=== PATIENT | female | born 1980 ===

== ENCOUNTER 2020-05-04 14:48 | Inpatient (IN) | payer MEDICAID, OTHER ==
[~2020-05-04] VITALS: Ht 167.7 cm; Wt 128.9 kg
[2020-05-04] MEDS ORDERED: ONDANSETRON 4 MG/2 ML (SDV) Z0FRAN IVP ONE (15:00)
[2020-05-04] MEDS ORDERED: KETOROLAC 30 MG/ML VIAL IVP ONE (15:00)
[2020-05-04] MEDS ORDERED: NS IV 1000 ML 1,000 ML IV SCH ×2 (15:00→16:00)
--- NOTE | 2020-05-04 15:04 | ED Abdominal Pain ---
General Stated Complaint: FEVER/LOWER ABD PAIN/NEG COVID TEST Source of Information: Patient Exam Limitations: No Limitations History of Present Illness Date Seen by Provider: May 04, 2020 Time Seen by Provider: 14:59 Initial Comments To ER from [facility] walk-in clinic where she presented with lower abdominal pain. She was seen at [facility] yesterday. States that she had a CT scan done and was told she had a cyst on her ovary. Today she has worsening pain and fevers. Symptoms began yesterday morning. She has also developed some nausea and diarrhea. Denies any dysuria. 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 She had a partial colectomy and colostomy with subsequent colostomy reversal as well as appendectomy. The surgeries were done in [place] greater than 5 years ago. She moved here from [place] in August or September of the past year. She has not established with a primary care provider yet. She takes no medications but used to take Lexapro for depression, Topamax for migraines and nortriptyline for [place] associated with the migraines. Timing/Duration: 1-2 Days Severity/Quality: Moderate Location: Suprapubic Radiation: No Radiation Activities at Onset: None Associated Symptoms: Fever/Chills, Nausea/Vomiting Allergies and Home Medications Allergies Coded Allergies: penicillin V (Verified Allergy, Unknown, 05/04/20) Patient Home Medication List Home Medication List Reviewed: Yes Review of Systems Review of Systems Constitutional: see HPI, chills, fever EENTM: No Symptoms Reported Respiratory: No Symptoms Reported, See HPI; Denies Cough Cardiovascular: No Symptoms Reported Gastrointestinal: See HPI, Abdominal Pain, Diarrhea, Nausea Genitourinary: No Symptoms Reported Musculoskeletal: no symptoms reported Skin: no symptoms reported Psychiatric/Neurological: No Symptoms Reported Endocrine: No Symptoms Reported Hematologic/Lymphatic: No Symptoms Reported Physical Exam Vital Signs Vital Signs - First Documented 05/04/20 14:53 Temp 37.7 Pulse 136 Resp 22 B/P (MAP) 145/69 (94) Pulse Ox 98 O2 Delivery Room Air Capillary Refill : Height/Weight/BMI Height: '" Weight: lbs. oz. kg; BMI Method: General Appearance: WD/WN, obese, other (alert, in pain though still very plea elias. Lower abdomen Tender to palpation. Tachycardic at 120s. ) HEENT: PERRL/EOMI, normal ENT inspection Respiratory: normal breath sounds, no respiratory distress, no accessory muscle use Cardiovascular: no murmur, tachycardia Gastrointestinal: normal bowel sounds, soft, tenderness Extremities: normal range of motion, non-tender Neurologic/Psychiatric: alert, normal mood/affect, oriented x 3 Skin: normal color, warm/dry Focused Exam Lactate Level 05/04/20 14:59: Lactic Acid Level 1.85 Lactic Acid Level Laboratory Tests Test 05/04/20 14:59 Lactic Acid Level 1.85 MMOL/L (0.50-2.00) Progress/Results/Core Measures Results/Orders Lab Results Laboratory Tests Test 05/04/20 14:59 Range/Units White Blood Count 19.2 H 4.3-11.0 10^3/uL Red Blood Count 4.54 3.80-5.11 10^6/uL Hemoglobin 13.4 11.5-16.0 g/dL Hematocrit 40 35-52 % Mean Corpuscular Volume 89 80-99 fL Mean Corpuscular Hemoglobin 30 25-34 pg Mean Corpuscular Hemoglobin Concent 33 32-36 g/dL Red Cell Distribution Width 13.0 10.0-14.5 % Platelet Count 330 130-400 10^3/uL Mean Platelet Volume 9.3 9.0-12.2 fL Immature Granulocyte % (Auto) 1 % Neutrophils (%) (Auto) 91 H 42-75 % Lymphocytes (%) (Auto) 4 L 12-44 % Monocytes (%) (Auto) 4 0-12 % Eosinophils (%) (Auto) 0 0-10 % Basophils (%) (Auto) 0 0-10 % Neutrophils # (Auto) 17.4 H 1.8-7.8 10^3/uL Lymphocytes # (Auto) 0.8 L 1.0-4.0 10^3/uL Monocytes # (Auto) 0.8 0.0-1.0 10^3/uL Eosinophils # (Auto) 0.0 0.0-0.3 10^3/uL Basophils # (Auto) 0.0 0.0-0.1 10^3/uL Immature Granulocyte # (Auto) 0.1 0.0-0.1 10^3/uL Neutrophils % (Manual) 82 % Lymphocytes % (Manual) 1 % Monocytes % (Manual) 6 % Band Neutrophils 11 % Toxic Granulation 1+ Blood Morphology Comment NORMAL Urine Color SHIV H Urine Clarity SL CLOUDY Urine pH 5.5 5-9 Urine Specific [place] >=1.030 1.016-1.022 Urine Protein 3+ H NEGATIVE Urine Glucose (UA) NEGATIVE NEGATIVE Urine Ketones TRACE H NEGATIVE Urine Nitrite POSITIVE H NEGATIVE Urine Bilirubin 2+ H NEGATIVE Urine Urobilinogen 4.0 < = 1.0 MG/DL Urine Leukocyte Esterase TRACE H NEGATIVE Urine RBC (Auto) 3+ H NEGATIVE Urine RBC 25-50 H /HPF Urine WBC 5-10 H /HPF Urine Crystals NONE /LPF Urine Bacteria LARGE H /HPF Urine Casts NONE /LPF Urine Mucus SMALL H /LPF Urine Culture Indicated YES Sodium Level 135 135-145 MMOL/L Potassium Level 3.2 L 3.6-5.0 MMOL/L Chloride Level 105 98-107 MMOL/L Carbon Dioxide Level 21 21-32 MMOL/L Anion Gap 9 5-14 MMOL/L Blood Urea Nitrogen 8 7-18 MG/DL Creatinine 0.79 0.60-1.30 MG/DL Estimat Glomerular Filtration Rate > 60 BUN/Creatinine Ratio 10 Glucose Level 145 H 70-105 MG/DL Lactic Acid Level 1.85 0.50-2.00 MMOL/L Calcium Level 8.7 8.5-10.1 MG/DL Corrected Calcium 9.0 8.5-10.1 MG/DL Total Bilirubin 1.3 H 0.1-1.0 MG/DL Aspartate Amino Transf (AST/SGOT) 18 5-34 U/L Alanine Aminotransferase (ALT/SGPT) 40 0-55 U/L Alkaline Phosphatase 68 40-136 U/L Total Protein 7.5 6.4-8.2 GM/DL Albumin 3.6 3.2-4.5 GM/DL Lipase 10 8-78 U/L Serum Test, Qualitative NEGATIVE NEGATIVE My Orders Orders - ANDRIA ALAS APRN Cbc With Automated Diff (05/04/20 14:57) Hcg,Qualitative Serum (05/04/20 14:57) Comprehensive Metabolic Panel (05/04/20 14:57) Lipase (05/04/20 14:57) Ua Culture If Indicated (05/04/20 14:57) Blood Culture (05/04/20 14:57) Lactic Acid Analyzer (05/04/20 14:57) Ct Abdomen/Pelvis W (05/04/20 14:57) Ns Iv 1000 Ml (Sodium Chloride 0.9%) (05/04/20 15:00) Ketorolac Injection (Toradol Injection) (05/04/20 15:00) Ondansetron Injection (Zofran Injectio (05/04/20 15:00) Urine Culture (05/04/20 14:59) Iohexol Injection (Omnipaque 350 Mg/Ml 1 (05/04/20 15:45) Received Contrast (Hold Metformin- Contr (05/04/20 15:45) Sodium Chloride Flush (Catheter Flush Sy (05/04/20 15:45) Ns (Ivpb) (Sodium Chloride 0.9% Ivpb Bag (05/04/20 15:45) Manual Differential (05/04/20 14:59) Ns Iv 1000 Ml (Sodium Chloride 0.9%) (05/04/20 16:00) Ceftriaxone For Iv Use (Rocephin For I (05/04/20 16:00) Metronidazole 500mg/100ml Ivpb (Flagyl 5 (05/04/20 16:00) Fentanyl Injection (Sublimaze Injection (05/04/20 16:00) Medications Given in ED Current Medications Medications Dose Ordered Sig/Adina Route Start Time Stop Time Status Last Admin Dose Admin Ceftriaxone Sodium 1000 mg/ Sterile Water 10 ml @ 200 mls/hr ONCE ONCE IV 05/04/20 16:00 05/04/20 16:02 DC 05/04/20 16:06 200 MLS/HR Fentanyl Citrate 50 mcg ONCE ONCE IVP 05/04/20 16:00 05/04/20 16:01 DC 05/04/20 16:07 50 MCG Iohexol 100 ml ONCE ONCE IV 05/04/20 15:45 05/04/20 15:47 DC 05/04/20 15:43 100 ML Ketorolac Tromethamine 30 mg ONCE ONCE IVP 05/04/20 15:00 05/04/20 15:01 DC 05/04/20 15:08 30 MG Metronidazole 100 ml @ 100 mls/hr ONCE ONCE IV 05/04/20 16:00 05/04/20 16:59 05/04/20 16:06 100 MLS/HR Ondansetron HCl 4 mg ONCE ONCE IVP 05/04/20 15:00 05/04/20 15:01 DC 05/04/20 15:08 8 MG Sodium Chloride 10 ml NEEDED PRN IV 05/04/20 15:45 05/04/20 15:43 10 ML Sodium Chloride 100 ml ONCE ONCE IV 05/04/20 15:45 05/04/20 15:47 DC 05/04/20 15:43 80 ML Vital Signs/I&O 05/04/20 14:53 Temp 37.7 Pulse 136 Resp 22 B/P (MAP) 145/69 (94) Pulse Ox 98 O2 Delivery Room Air Departure Communication (Admissions) 1619-She has tachycardia, fever, leukocytosis plus a source of infection meeting sepsis criteria. She does not meet severe sepsis criteria as she does not have a lactate over 4, end organ damage, or her systolic pressure less than 90. In fact her blood pressure is in the 140s. She has had 1 L of IV fluids here and the second liter is infusing currently. She is received 1 g of IV Rocephin and 500 mg of IV Flagyl here as well as Toradol plus fentanyl and her pain is well controlled. She is afebrile at this time. I discussed the case with Dr. Velazco on-call for surgery will admit to him, consult Dr. Phillips from radiology for CT- guided drain placement tomorrow. I have updated the patient and her significant other on the diagnosis and plan of care. Both are in agreement with proceeding with the plan . Impression Primary Impression: Intra-abdominal abscess Additional Impression: Sepsis Disposition: ADMITTED INPATIENT Condition: Stable Admissions Decision to Admit Reason: Admit from ER (General) Decision to Admit/Date: May 04, 2020 Time/Decision to Admit Time: 16:18 Departure-Patient Inst. Referrals: NO,LOCAL PHYSICIAN (PCP/Family) Primary Care Physician ANDRIA AALS APRN May 04, 2020 15:04
[2020-05-04 15:11] LABS: BASOPHILS % (AUTO) 0 % (0-10); EOSINOPHILS % (AUTO) 0 % (0-10); HEMATOCRIT 40 % (35-52); HEMOGLOBIN 13.4 g/dL (11.5-16.0); LYMPHOCYTES # (AUTO) 0.8 10^3/uL (1.0-4.0); LYMPHOCYTES % (AUTO) 4 % (12-44); MEAN CORPUSCULAR HEMOGLOBIN 30 pg (25-34); MEAN CORPUSCULAR HGB CONC 33 g/dL (32-36); MEAN CORPUSCULAR VOLUME 89 fL (80-99); MEAN PLATELET VOLUME 9.3 fL (9.0-12.2); MONOCYTES # (AUTO) 0.8 10^3/uL (0.0-1.0); MONOCYTES % (AUTO) 4 % (0-12); NEUTROPHILS # (AUTO) 17.4 10^3/uL (1.8-7.8); NEUTROPHILS % (AUTO) 91 % (42-75); PLATELET COUNT 330 10^3/uL (130-400); WHITE BLOOD COUNT 19.2 10^3/uL (4.3-11.0)
[2020-05-04 15:14] LABS: BILIRUBIN,URINE 2+ (NEGATIVE); CLARITY,URINE SL CLOUDY; COLOR,URINE AMBER; GLUCOSE, URINE (UA) NEGATIVE (NEGATIVE); KETONES,URINE TRACE (NEGATIVE); LEUKOCYTE ESTERASE ,URINE TRACE (NEGATIVE); NITRITE,URINE POSITIVE (NEGATIVE); PH,URINE 5.5 (5-9); PROTEIN,URINE 3+ (NEGATIVE)
[2020-05-04 15:22] LABS: ALBUMIN 3.6 GM/DL (3.2-4.5); CHLORIDE 105 MMOL/L (98-107); POTASSIUM 3.2 MMOL/L (3.6-5.0); SODIUM 135 MMOL/L (135-145)
[2020-05-04 15:23] LABS: CALCIUM 8.7 MG/DL (8.5-10.1)
[2020-05-04 15:25] LABS: GLUCOSE 145 MG/DL (70-105); TOTAL PROTEIN 7.5 GM/DL (6.4-8.2)
[2020-05-04 15:26] LABS: BILIRUBIN,TOTAL 1.3 MG/DL (0.1-1.0); CARBON DIOXIDE 21 MMOL/L (21-32)
[2020-05-04 15:28] LABS: ALKALINE PHOSPHATASE 68 U/L (40-136); CREATININE SERUM 0.79 MG/DL (0.60-1.30); GFR ESTIMATED > 60; RBC,URINE 25-50 /HPF
[2020-05-04 15:29] LABS: BACTERIA,URINE LARGE /HPF; BUN/CREATININE RATIO 10
[2020-05-04 15:31] LABS: ALANINE AMINOTRANSFERASE 40 U/L (0-55)
[2020-05-04 15:32] LABS: LIPASE 10 U/L (8-78)
[2020-05-04 15:35] LABS: BAND NEUTROPHILS 11 %; LYMPHOCYTES % (MANUAL) 1 %; MONOCYTES % (MANUAL) 6 %; NEUTROPHILS % (MANUAL) 82 %
[2020-05-04 15:36] LABS: RBC MORPH NORMAL; TOXIC GRANULATION/VACUOLAZATIO 1+
[2020-05-04] MEDS ORDERED: HOLD METFORMIN - RECEIVED CONTRAST 20 ML VIAL IV SCH (15:45)
[2020-05-04] MEDS ORDERED: IOHEXOL 350 MG/ML 100 ML (OMNIPAQUE 350) VIAL IV ONE (15:45)
[2020-05-04] MEDS ORDERED: NS 100 ML (IVPB) BAG IV ONE (15:45)
[2020-05-04] MEDS ORDERED: CATHETER FLUSH 10 ML SYR IV PRN (15:45)
[2020-05-04] MEDS ORDERED: cefTRIAXone FOR IV USE 1,000 MG in WATER (STERILE) FOR INJECTION 10 ML IV ONE (16:00)
[2020-05-04] MEDS ORDERED: fentaNYL INJECTION 100 MCG/2 ML AMP IVP ONE (16:00)
[2020-05-04] MEDS ORDERED: metroNIDAZOLE 500MG/100ML IVPB 100 ML IV ONE (16:00)
--- NOTE | 2020-05-04 16:02 | Diagnostic Imaging Report ---
Procedure: CT abdomen and pelvis with contrast. Technique: Multiple contiguous axial images were obtained through the abdomen and pelvis after administration of intravenous contrast. Auto Exposure Controls were utilized during the CT exam to meet ALARA standards for radiation dose reduction. All CT scans use one or more of the following dose optimizing techniques: automated exposure control, MA and/or KvP adjustment based on patient size and exam type or iterative reconstruction. Indication: Suprapubic lower abdominal pain with fever. Comparison: None. Discussion: Lung bases are well-aerated. Normal heart size. No pleural or pericardial fluid. Fatty infiltration of the liver is noted. The gallbladder is mostly contracted and appears to be full of stones. The pancreas, stomach, spleen and adrenal glands are unremarkable. No renal stone, mass or hydronephrosis. The uterus is unremarkable. The urinary bladder is decompressed. There is a suture line within the proximal sigmoid colon which appears patent. Within the central abdomen there is a large complex fluid collection with thin enhancing shell measuring 24 x 10 x 9 cm. In the appropriate clinical setting this could represent an intra-abdominal abscess. The source of this abscess is not identified. There is no mural nodularity identified though a large cystic ovarian neoplasm is not entirely excluded, though felt to be much less likely. No adenopathy. The aorta is normal in caliber. No osseous abnormality identified. Impression: 1. There is a large rim-enhancing complex fluid collection within the central abdomen, most likely a large intraperitoneal abscess. Recommend clinical correlation. 2. Fatty infiltration of the liver. Dictated by: Dictated on workstation # [id number]
[2020-05-04] MEDS ORDERED: LACTATED RINGERS 1,000 ML IV ONE (17:11)
[2020-05-04 17:15] VITALS: BP 120/81
[2020-05-04 17:30] VITALS: BP_SYST 121; BP_SYST 136; BP_DIAS 78
[2020-05-04] MEDS: LACTATED RINGERS 1,000 ML IV SCH (17:43)
[2020-05-04 17:46] VITALS: BP 132/74
[2020-05-04] MEDS ORDERED: PANTOPRAZOLE 40 MG (PROTONIX) VIAL ONE (17:55)
[2020-05-04] MEDS ORDERED: PANTOPRAZOLE 40 MG (PROTONIX) VIAL IV ONE (18:00)
[2020-05-04] MEDS ORDERED: ONDANSETRON 4 MG/2 ML (SDV) Z0FRAN IVP PRN (19:30)
[2020-05-04] MEDS ORDERED: ACETAMINOPHEN 325 MG TABLET PO PRN (19:30)
[2020-05-04] MEDS ORDERED: PROMETHAZINE INJ 25 MG/ML (PHENERGAN) AMP IVP PRN (19:30)
[2020-05-04 20:55] VITALS: BP 133/98
[2020-05-04] MEDS: metroNIDAZOLE 500 MG/100 ML IVPB (PRE-MIX) IV SCH (21:07)
[2020-05-04] MEDS: fentaNYL INJECTION 100 MCG/2 ML AMP IVP PRN (21:07)
[2020-05-05] VITALS: BP 132/84
[2020-05-05] MEDS: LACTATED RINGERS 1,000 ML IV SCH ×3 (00:29→08:07)
[2020-05-05] MEDS: fentaNYL INJECTION 100 MCG/2 ML AMP IVP PRN ×3 (02:23→08:06)
[2020-05-05 02:56] LABS: BASOPHILS % (AUTO) 0 % (0-10); EOSINOPHILS % (AUTO) 0 % (0-10); HEMATOCRIT 33 % (35-52); HEMOGLOBIN 10.8 g/dL (11.5-16.0); LYMPHOCYTES # (AUTO) 0.8 10^3/uL (1.0-4.0); LYMPHOCYTES % (AUTO) 5 % (12-44); MEAN CORPUSCULAR HEMOGLOBIN 30 pg (25-34); MEAN CORPUSCULAR HGB CONC 33 g/dL (32-36); MEAN CORPUSCULAR VOLUME 90 fL (80-99); MEAN PLATELET VOLUME 9.6 fL (9.0-12.2); MONOCYTES # (AUTO) 0.9 10^3/uL (0.0-1.0); MONOCYTES % (AUTO) 6 % (0-12); NEUTROPHILS # (AUTO) 12.7 10^3/uL (1.8-7.8); NEUTROPHILS % (AUTO) 88 % (42-75); PLATELET COUNT 246 10^3/uL (130-400); WHITE BLOOD COUNT 14.4 10^3/uL (4.3-11.0)
[2020-05-05 03:09] LABS: ALBUMIN 2.9 GM/DL (3.2-4.5); CHLORIDE 108 MMOL/L (98-107); POTASSIUM 3.1 MMOL/L (3.6-5.0); SODIUM 136 MMOL/L (135-145)
[2020-05-05 03:11] LABS: CALCIUM 7.7 MG/DL (8.5-10.1)
[2020-05-05 03:12] LABS: GLUCOSE 108 MG/DL (70-105); TOTAL PROTEIN 5.8 GM/DL (6.4-8.2)
[2020-05-05 03:13] LABS: CARBON DIOXIDE 21 MMOL/L (21-32)
[2020-05-05 03:15] LABS: ALKALINE PHOSPHATASE 61 U/L (40-136); CREATININE SERUM 0.66 MG/DL (0.60-1.30); GFR ESTIMATED > 60
[2020-05-05 03:16] LABS: BUN/CREATININE RATIO 11
[2020-05-05 03:18] LABS: ALANINE AMINOTRANSFERASE 28 U/L (0-55)
[2020-05-05 04:00] VITALS: BP 135/84
[2020-05-05] MEDS: metroNIDAZOLE 500 MG/100 ML IVPB (PRE-MIX) IV SCH ×2 (05:25→15:06)
[2020-05-05 08:00] VITALS: BP 132/83
[2020-05-05] MEDS ORDERED: PANTOPRAZOLE 40 MG (PROTONIX) VIAL IV SCH (09:00)
[2020-05-05] MEDS ORDERED: FLUT9.9S NS (09:57)
[2020-05-05] MEDS ORDERED: IBUP-2473 PO (09:57)
[2020-05-05] MEDS ORDERED: FAMO20TA3 PO (09:57)
[2020-05-05] MEDS ORDERED: HYDROcodone/APAP 5 MG/325 MG (LORTAB) TAB ONE (11:56)
[2020-05-05 12:00] VITALS: BP 131/94
[2020-05-05] MEDS: HYDROcodone/APAP 5 MG/325 MG (LORTAB) TAB PO PRN ×2 (12:02→17:35)
--- NOTE | 2020-05-05 12:19 | History & Physical-Surgical ---
History of Present Illness History of Present Illness Reason for visit/HPI Surgery asked to admit regarding abdominal pain and fluid in aabdomen. HPI per ED: To ER from [facility] walk-in clinic where she presented with lower abdominal pain. She was seen at [facility] yesterday. States that she had a CT scan done and was told she had a cyst on her ovary. Today she has worsening pain and fevers. Symptoms began yesterday morning. She has also developed some nausea and diarrhea. Denies any dysuria. 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 She had a partial colectomy and colostomy with subsequent colostomy reversal as well as appendectomy. The surgeries were done in [place] greater than 5 years ago. She moved here from [place] in August or September of the past year. She has not established with a primary care provider yet. She takes no medications but used to take Lexapro for depression, Topamax for migraines and nortriptyline for [place] associated with the migraines. Timing/Duration: 1-2 Days Severity/Quality: Moderate Location: Suprapubic Radiation: No Radiation Activities at Onset: None Associated Symptoms: Fever/Chills, Nausea/Vomiting Pt states pain started early tuesday morning, woke her from sleep. She rates it 8 out of 10, all across lower abdomen and radiates into her back. She states it is always worse when she wakes up from sleep, but moving and sitting up seem to help. She has never had any pain like this or even twinges in past 1- 2months. Date of Admission May 04, 2020 at 16:14 Time Seen by a Provider: 11:21 I consulted on this patient on 05/05/20 12:14 Attending Physician Ihsan Velazco DO Admitting Physician No,Local Physician Consult Allergies and Home Medications Allergies Coded Allergies: penicillin V (Verified Allergy, Unknown, 05/04/20) Home Medications Famotidine 20 Mg Tablet, 20 MG PO DAILY PRN for INDIGESTION, (Reported) Fluticasone Propionate 9.9 Ml [place].susp, 2 SPRAY NS DAILY PRN for CONGESTION, (Reported) Ibuprofen 200 Mg Tablet, 800 MG PO Q8H PRN for PAIN-MILD (1-4), (Reported) Patient Home Medication List Home Medication List Reviewed: Yes Past [id number]-Brixjj Hx Patient Social History Smoking Status: Former Smoker Recent Hopitalizations: No Alcohol Use?: Yes Have you traveled recently?: No Immunizations Up To Date Tetanus Booster (TDap): Unknown Date of Influenza Vaccine: Dec 26, 2019 Seasonal Allergies Seasonal Allergies: No Surgeries History of Surgeries: Yes (fallopian tube removed, reversed colostomy) Surgeries: Abdominal (Colostomy, Colostomy reversal), Appendectomy Respiratory History of Respiratory Disorde: No Cardiovascular History of Cardiac Disorders: No Neurological History of Neurological Disord: Yes Neurological Disorders: Headaches /Migraines, Stroke (post ) Reproductive System : No Genitourinary History of Genitourinary Disor: No Gastrointestinal History of Gastrointestinal Di: Yes Gastrointestinal Disorders: Obstructive Bowel, Gall Bladder Disease Musculoskeletal History of Musculoskeletal Dis: No Endocrine History of Endocrine Disorders: No HEENT History of HEENT Disorders: No Cancer History of Cancer: No Psychosocial History of Psychiatric Problem: No Family Medical History Significant Family History: Diabetes (Mother's parents), Hypertension (Mother and Father), Other Conditions/Hx (Mother has high cholesterol) Review of Systems Constitutional: No chills, No diaphoresis, No malaise, No weakness EENTM: No blurred vision, No double vision, No mouth pain, No mouth swelling, No epistaxis Respiratory: No cough, No dyspnea on exertion, No short of breath Cardiovascular: No chest pain, No edema Gastrointestinal: abdominal pain (RLQ, LLQ); No dysphagia, No hematemesis; nausea; No vomiting Genitourinary: No dysuria, No frequency, No hematuria Musculoskeletal: No joint pain, No joint swelling, No muscle pain, No muscle stiffness Skin: No change in color, No change in hair/nails Psychiatric/Neurological: Denies Anxiety, Denies Depressed, Denies Pre-Existing Deficit, Denies Tremors, Denies Weakness HEMATOLOGY Pt denies any hx of abnormal bleeding or bruising. Physical Exam Vital Signs Vital Signs - First Documented 05/04/20 14:53 Temp 37.7 Pulse 136 Resp 22 B/P (MAP) 145/69 (94) Pulse Ox 98 O2 Delivery Room Air Capillary Refill : Less Than 3 Seconds Height, Weight, BMI Height: '" Weight: lbs. oz. kg; 45.83 BMI Method: General Appearance: Mild Distress, Obese Eyes: Bilateral Eye PERRL, Bilateral Eye EOMI HEENT: Pharynx Normal, Moist Mucous Membranes; No Scleral Icterus (L), No Scleral Icterus (R) Neck: Full Range of Motion, Supple Respiratory: Chest Non Tender, Lungs Clear, Normal Breath Sounds, No Accessory Muscle Use, No Respiratory Distress Cardiovascular: Regular Rate, Rhythm, No Murmur Gastrointestinal: No Organomegaly, No Pulsatile Mass, Soft; No Distended; Tenderness (diffusely lower abdomen with mod touch) Back: No CVA Tenderness, No Vertebral Tenderness Extremity: Non Tender, No Calf Tenderness, No Pedal Edema Neurologic/Psychiatric: Alert, Oriented x3, Normal Mood/Affect, vascular manager II-XII Norm as Tested Skin: Normal Color, Warm/Dry Lymphatic: No Adenopathy (neck, axilla or inguinal) Data Review Labs Laboratory Tests 05/04/20 14:59: White Blood Count 19.2H, Red Blood Count 4.54, Hemoglobin 13.4, Hematocrit 40, Mean Corpuscular Volume 89, Mean Corpuscular Hemoglobin 30, Mean Corpuscular Hemoglobin Concent 33, Red Cell Distribution Width 13.0, Platelet Count 330, Mean Platelet Volume 9.3, Immature Granulocyte % (Auto) 1, Neutrophils (%) (Auto) 91H, Lymphocytes (%) (Auto) 4L, Monocytes (%) (Auto) 4, Eosinophils (%) (Auto) 0, Basophils (%) (Auto) 0, Neutrophils # (Auto) 17.4H, Lymphocytes # (Auto) 0.8L, Monocytes # (Auto) 0.8, Eosinophils # (Auto) 0.0, Basophils # (Auto) 0.0, Immature Granulocyte # (Auto) 0.1, Neutrophils % (Manual) 82, Lymphocytes % (Manual) 1, Monocytes % (Manual) 6, Band Neutrophils 11, Toxic Granulation 1+, Blood Morphology Comment NORMAL, Urine Color AMBERH, Urine Clarity SL CLOUDY, Urine pH 5.5, Urine Specific [place] >=1.030, Urine Protein 3+H, Urine Glucose (UA) NEGATIVE, Urine Ketones TRACEH, Urine Nitrite POSITIVEH, Urine Bilirubin 2+H, Urine Urobilinogen 4.0, Urine Leukocyte Esterase TRACEH, Urine RBC (Auto) 3+H, Urine RBC 25-50H, Urine WBC 5-10H, Urine Crystals NONE, Urine Bacteria LARGEH, Urine Casts NONE, Urine Mucus SMALLH, Urine Culture Indicated YES, Sodium Level 135, Potassium Level 3.2L, Chloride Level 105, Carbon Dioxide Level 21, Anion Gap 9, Blood Urea Nitrogen 8, Creatinine 0.79, Estimat Glomerular Filtration Rate > 60, BUN/Creatinine Ratio 10, Glucose Level 145H, Lactic Acid Level 1.85, Calcium Level 8.7, Corrected Calcium 9.0, Total Bilirubin 1.3H, Aspartate Amino Transf (AST/SGOT) 18, Alanine Aminotransferase (ALT/SGPT) 40, Alkaline Phosphatase 68, Total Protein 7.5, Albumin 3.6, Lipase 10, Serum Test, Qualitative NEGATIVE 05/05/20 02:46: White Blood Count 14.4H, Red Blood Count 3.65L, Hemoglobin 10.8L, Hematocrit 33L , Mean Corpuscular Volume 90, Mean Corpuscular Hemoglobin 30, Mean Corpuscular Hemoglobin Concent 33, Red Cell Distribution Width 12.9, Platelet Count 246, Mean Platelet Volume 9.6, Immature Granulocyte % (Auto) 1, Neutrophils (%) (A uto) 88H, Lymphocytes (%) (Auto) 5L, Monocytes (%) (Auto) 6, Eosinophils (%) (Auto) 0, Basophils (%) (Auto) 0, Neutrophils # (Auto) 12.7H, Lymphocytes # (Auto) 0.8L, Monocytes # (Auto) 0.9, Eosinophils # (Auto) 0.0, Basophils # (Auto) 0.0, Immature Granulocyte # (Auto) 0.1, Sodium Level 136, Potassium Level 3.1L, Chloride Level 108H, Carbon Dioxide Level 21, Anion Gap 7, Blood Urea Nitrogen 7, Creatinine 0.66, Estimat Glomerular Filtration Rate > 60, BUN/Creatinine Ratio 11, Glucose Level 108H, Calcium Level 7.7L, Corrected Calcium 8.6, Total Bilirubin 1.0, Aspartate Amino Transf (AST/SGOT) 13, Alanine Aminotransferase (ALT/SGPT) 28, Alkaline Phosphatase 61, Total Protein 5.8L, Albumin 2.9L Microbiology 05/04/20 Urine Culture - Preliminary, Resulted Strep, Beta Hemolytic Group B Radiology Date of Exam:05/04/20 CT ABDOMEN/PELVIS W Procedure: CT abdomen and pelvis with contrast. Technique: Multiple contiguous axial images were obtained through the abdomen and pelvis after administration of intravenous contrast. Auto Exposure Controls were utilized during the CT exam to meet ALARA standards for radiation dose reduction. All CT scans use one or more of the following dose optimizing techniques: automated exposure control, MA and/or KvP adjustment based on patient size and exam type or iterative reconstruction. Indication: Suprapubic lower abdominal pain with fever. Comparison: None. Discussion: Lung bases are well-aerated. Normal heart size. No pleural or pericardial fluid. Fatty infiltration of the liver is noted. The gallbladder is mostly contracted and appears to be full of stones. The pancreas, stomach, spleen and adrenal glands are unremarkable. No renal stone, mass or hydronephrosis. The uterus is unremarkable. The urinary bladder is decompressed. There is a suture line within the proximal sigmoid colon which appears patent. Within the central abdomen there is a large complex fluid collection with thin enhancing shell measuring 24 x 10 x 9 cm. In the appropriate clinical setting this could represent an intra-abdominal abscess. The source of this abscess is not identified. There is no mural nodularity identified though a large cystic ovarian neoplasm is not entirely excluded, though felt to be much less likely. No adenopathy. The aorta is normal in caliber. No osseous abnormality identified. Impression: 1. There is a large rim-enhancing complex fluid collection within the central abdomen, most likely a large intraperitoneal abscess. Recommend clinical correlation. 2. Fatty infiltration of the liver. Dictated by: Dictated on workstation # [id number] Dict: 05/04/20 1550 Trans: 05/04/20 1616 [facility] [id number] Interpreted by: KATHI LA MD Electronically signed by: KATHI LA MD 05/04/20 1616 Assessment/Plan Assessment/Plan Admission Diagonsis Abdominal pain Leukocytosis Free fluid in Abdomen Admission Status: Observation Assessment/Plan Abdominal pain Leukocytosis Free fluid in Abdomen Unsure etiology of fluid in abdomen, doesn't really look inflammatory; could be ruptured ovarian cyst and maybe hemorrhagic. Plan for Radiology guided drainage and then send to laboratory for work-up. Pt is doing better with IV ABX and her WBC came down; t was 10 in [place], 19 last night and 14 today. Pt needs to get home so her significant other can go on his abdelrahman route. Depending on what drainage finds, we may send her home on oral ABX with oral pain meds. DELMAN,IHSAN B DO May 05, 2020 12:19
[2020-05-05] MEDS ORDERED: METR500T PO (12:33)
[2020-05-05] MEDS ORDERED: CEPH500T PO (12:33)
--- NOTE | 2020-05-05 12:34 | Discharge Inst-Surgical ---
Discharge Inst-Surgical Depart Medication/Instructions New, Converted or Re-Newed RX: Transmitted to Pharmacy Patient Instructions Follow up Appt: Make appointment for 1 week. [phone] Instructions: No lifting greater than 20 pounds. No strenuous activity. May shower in 24 hours, no tub bath or soaking. Use incentive spirometer at home as directed. No Smoking Symptoms to Report: Appetite Changes, Extremity Discoloration, Numbness/Tingling, Swelling Increased, Bleeding Excessive, Eyesight Changes, Pain Increased, Urine Color Change, Constipation(Persistent), Fever over 101 degree F, Pain/Pressure in chest, Urinating Difficulty, Cough Up/Vomit Blood, Heart Beat Irreg/Pounding, Pain/Pressure in jaw, Cramps in feet or legs, Lightheadedness, Pain/Pressure in shoulder, Diarrhea(Persistent), Memory Changes Suddenly, Questions/Concerns, Weight gain consecutive days, Dizziness/Fainting, Nausea/Vomiting, Shortness of Breath, Weight gain over 2 pounds If questions or concerns contact your physician Or seek help at emergency department. Activity Activity as Tolerated: Yes Driving Instructions: You May Drive Diet Discharge Diet: No Restrictions Diet After 24 Hours: Clear Liquid if Nauseous If Any Problems/Questions/Issu: Contact Your Physician, Go to Emergency Room Skin/Wound Care Infection Signs and Symptoms: Temperature Above 101 F Bathing Instructions: WILL Carrera DO May 05, 2020 12:34
[2020-05-05 14:50] VITALS: BP 139/78
[2020-05-05] MEDS ORDERED: LIDOCAINE 1% INJ 20 ML 20 ML VIAL INJ ONE (15:30)
[2020-05-05] MEDS ORDERED: cefTRIAXone 1,000 MG/SWFI 10 ML IV PUSH IV SCH ×2 (16:00)
--- NOTE | 2020-05-05 16:00 | Pre-Op Note & Conscious Sedat ---
Pre-Operative Progress Note H&P Reviewed The H&P was reviewed, patient examined and no changes noted. Date H&P Reviewed: May 05, 2020 Time H&P Reviewed: 14:00 Pre-Op Diagnosis: abdominal fluid collection Conscious Sedation Pre-Proced Time 14:00 ASA Score 2 For ASA 3 and 4: Consider anesthesia and medical clearance. Also, for patients with a history of failed moderate sedation consider anesthesia. Airway Lungs Heart ASA score ASA 1: a normal healthy patient ASA 2: a patient with a mild systemic disease (mid diabetes, controlled h ypertension, obesity ASA 3: a patient with a severe systemic disease that limits activity (angina, COPD, prior Myocardial infarction) ASA 4: a patient with an incapacitating disease that is a constant threat to life (CHF, renal failure) ASA 5: a moribund patient not expected to survive 24 hrs. (ruptured aneurysm) ASA 6: a declared brain- patient whose organs are being harvested. For emergent operations, add the letter E after the classification Mallampati Classification Grade 2 Sedation Plan Analgesia, Amnesia, Plan communicated to team members, Discussed options with patient/fam, Discussed risks with patient/fam The patient is an appropriate candidate to undergo the planned procedure, s edation, and anesthesia. The patient immediately re-assessed prior to indication. LARRY REYNOSO MD May 05, 2020 16:00
--- NOTE | 2020-05-05 16:00 | Diagnostic Imaging Report ---
INDICATION: Abdominal fluid collection. TECHNIQUE: All CT scans use one or more of the following dose optimizing techniques: automated exposure control, MA and/or KvP adjustment based on patient size and exam type or iterative reconstruction. DETAILS OF THE PROCEDURE: The patient was brought to the CT suite and placed on the table in the supine position. Axial imaging through the abdomen and pelvis was performed to evaluate for an appropriate entry site. The procedure was performed utilizing Radiology nursing and constant patient monitoring. The right abdomen was prepped and draped in the usual sterile fashion. A small amount of 1% lidocaine was utilized for local anesthesia. A [employer] needle was advanced from a right lateral approach and placed within the fluid collection in the right abdomen. This was exchanged over an 035 guidewire. The tract was dilated with 6-Slovenian and 8-Slovenian dilators. An 8.5-Slovenian all-purpose pigtail drain was then advanced over the wire and formed within the collection. The catheter was affixed to the patient's skin and placed to a Celeste drain. The patient tolerated the procedure well and left the Department in stable condition. IMPRESSION: Successful CT-guided pigtail drain placement into the right abdomen fluid collection. Dictated by: Dictated on workstation # [id number]
== END 2020-05-05 18:25 | disposition home or self-care (01) | DRG 871 ==
LOC: ER 14:51 → CSD 16:14
PROVIDERS: ADMIT Surgery; ATTEND Surgery
PROC: 0W9G30Z Drainage of Peritoneal Cavity with Drainage Device, Percutaneous Approach (ICD-10-PCS; principal; 2020-05-05)
DX: A41.9 Sepsis, unspecified organism (principal); K65.1 Peritoneal abscess; Z88.0 Allergy status to penicillin
CPT/HCPCS: 36415; 74177; 77012; 80053; 81000; 82570; 83605; 83690; 84703; 85007; 85025; 85027; 87015; 87040; 87070; 87075; 87077; 87088; 87101; 87116; 87205; 87206